=== PATIENT | male | born 1955 | race Asian ===

== ENCOUNTER 2016-10-28 08:47 | Day surgery (SDC) | payer OTHER ==
[~2016-10-28] VITALS: Ht 168.9 cm; Wt 66.7 kg
[2016-10-28] MEDS ORDERED: FER325 PO (10:02)
[2016-10-28] MEDS ORDERED: FOLI-49 PO (10:02)
[2016-10-28] MEDS ORDERED: DOCU-159 PO (10:02)
[2016-10-28] MEDS ORDERED: METO50TA16 PO (10:06)
[2016-10-28] MEDS ORDERED: METH-493 PO (10:06)
[2016-10-28] MEDS ORDERED: HYDR-906 PO (10:06)
[2016-10-28] MEDS ORDERED: PANT40TA3 PO (10:07)
[2016-10-28] MEDS ORDERED: TAMS0.4C2 PO (10:07)
[2016-10-28] MEDS ORDERED: ATOR20TA38 PO (10:08)
[2016-10-28] MEDS ORDERED: CHOL400T10 PO (10:08)
[2016-10-28 10:11] VITALS: Ht 168.9 cm; Wt 66.7 kg
[2016-10-28 10:15] VITALS: BP 139/63; PULSE 101; RESP 16
[2016-10-28] MEDS ORDERED: HEPARIN 1000 UNITS/ML 10 ML INJ ONE (13:35)
[2016-10-28] MEDS ORDERED: HEPARIN 1000 UNITS/NS (A-LINE) 1,000 ML ONE (13:36)
[2016-10-28] MEDS ORDERED: LIDOCAINE 1% (MDV) 20 ML INJ ONE (13:36)
[2016-10-28] MEDS ORDERED: FENTAnyl 50 MCG/ML VIAL ONE (13:37)
[2016-10-28] MEDS ORDERED: MIDAZOLAM 1 MG/ML 2 ML INJ ONE (13:38)
[2016-10-28] MEDS ORDERED: IODIXANOL LOCM 50 ML BTL ONE (14:14)
--- NOTE | 2016-10-28 14:15 | SIPON ---
Date/Time of Note Date/Time of Note DATE: 10/28/16 TIME: 14:14 Operative Report Preoperative Diagnosis L arm AVF malfunction Postoperative Diagnosis same Operation/Procedure Performed L arm AVF gram, PTV basilic vein stenosis Anesthesia Type: other Estimated Blood Loss: minimal Transfusion Required: no Specimen: none Grafts/Implants: none Complications: no NERIS DURAN MD Oct 28, 2016 14:15
[2016-10-28 14:35] VITALS: BP 161/73; PULSE 81; RESP 16
--- NOTE | 2016-10-28 20:37 | OPR ---
DATE OF OPERATION: 10/28/2016 PREOPERATIVE DIAGNOSIS: Left arm arteriovenous fistula malfunction. POSTOPERATIVE DIAGNOSIS: Left arm arteriovenous fistula malfunction. OPERATIVE PROCEDURE: 1. Left arm arteriovenous fistulogram. 2. Percutaneous venoplasty of severe stenosis in the basilic vein. SURGEON: Jacques Morris MD ANESTHESIA: Local. ESTIMATED BLOOD LOSS: Minimal. COMPLICATIONS: There were no intraprocedural complications. INDICATIONS: This is a 60-year-old diabetic, hypertensive gentleman with end-stage renal disease, dialyzing via right IJ PermCath. He has a left upper arm AV fistula to brachiobasilic transposition. It has been accessed for a while but only really with one needle. Whenever they use two needles, he has a lot of pain and having some issues with , so I brought him today for fistulogram. I suspect an infrarenal stenosis. PROCEDURE IN DETAIL: Patient was brought to the coreroom foundry laborer, placed on the table in the supine position. Left arm was prepped and draped in usual sterile fashion. We began by infiltrating over the fistula in the upper arm with 10 cc of 1% Xylocaine. I then punctured the fistula with a micropuncture needle pointing towards the elbow in the upper arm. Placed an 0.018 wire through the needle and into the fistula. The micropuncture sheath was advanced with a wire into the fistula. I then did an AV fistulogram with appropriate compression used so I could see the arterial anastomosis. The AV fistulogram shows arterial anastomosis is widely patent. There is a severe stenosis in the basilic vein about 5 cm above the arterial anastomosis, a few centimeters above the elbow. The rest of the vein is wide open and good caliber. The central veins were all widely patent. To treat the stenosis I advanced an 0.035 J wire into the fistula. I exchanged the micropuncture sheath for a 5-Ukrainian sheath over the wire. I then advanced an 0.035 Glidewire down through the arterial anastomosis and into the brachial artery, then treated the severe stenosis in the basilic vein using a 6 mm x 4 cm balloon. We inflated it to about 14 atmospheres until the waist was no longer visualized. We removed the balloon and completion AV fistulogram showed the area of stenosis was now widely patent with no residual stenosis. There was now a real strong thrill in the fistula. I was happy with the result. We removed the catheter, sheaths and wires, then held pressure on the puncture site until there was good hemostasis. He tolerated the procedure well without any complication. He is okay to use the fistula again tomorrow. Dictated By: Jacques Morris MD /[email or web address] /Document#: [id number] CC: Kee Bucio MD
== END 2016-10-28 15:00 | disposition home or self-care (01) ==
LOC: SDS 08:47
PROVIDERS: ATTEND Surgery Vascular Surgery
DX: T82.898A Other specified complication of vascular prosthetic devices, implants and grafts, initial encounter (principal); Y84.1 Kidney dialysis as the cause of abnormal reaction of the patient, or of later complication, without mention of misadventure at the time of the procedure; Y92.89 Other specified places as the place of occurrence of the external cause; I12.0 Hypertensive chronic kidney disease with stage 5 chronic kidney disease or end stage renal disease; N18.6 End stage renal disease; E11.9 Type 2 diabetes mellitus without complications
CPT/HCPCS: 36901; 82962; 84132; C1725; C1894; J1644; J2250; J3010; Q9967; Z7610

== ENCOUNTER 2017-01-24 06:49 | Day surgery (SDC) | payer OTHER ==
[~2017-01-24] VITALS: Ht 170.2 cm; Wt 66.7 kg
[~2017-01-24 06:49] MED LIST: ATOR20TA38 PO; CHOL400T10 PO; DOCU-159 PO; FER325 PO; FOLI-49 PO; HYDR-906 PO; METH-493 PO; METO-319 PO; PANT40TA3 PO; TAMS0.4C2 PO
[2017-01-24 08:12] VITALS: Ht 170.2 cm; Wt 66.7 kg
[2017-01-24] MEDS ORDERED: LIDOCAINE 1% (MDV) 20 ML INJ ONE (08:14)
[2017-01-24] MEDS ORDERED: IODIXANOL LOCM 100 ML BTL ONE (08:14)
[2017-01-24 08:15] VITALS: BP 161/66; PULSE 74; RESP 16
[2017-01-24] MEDS ORDERED: FENTAnyl 50 MCG/ML VIAL ONE (08:22)
[2017-01-24] MEDS ORDERED: MIDAZOLAM 1 MG/ML 2 ML INJ ONE (08:22)
--- NOTE | 2017-01-24 08:57 | SIPON ---
Date/Time of Note Date/Time of Note DATE: 01/24/17 TIME: 08:55 Operative Report Preoperative Diagnosis L arm AVF malfunction Postoperative Diagnosis same Operation/Procedure Performed L arm AVF gram, PTV mid upper arm basilic vein (95% stenosis, 0 % post PTV 6 x 80 to 20 misti) Surgeon see signature line [facility] assisted living none Anesthesia: other Estimated blood loss: none Transfusion Required none Specimen none Grafts/Implants none Complications none NERIS DURAN MD Jan 24, 2017 08:57
[2017-01-24 09:20] VITALS: BP 148/63; PULSE 60; RESP 18
[2017-01-24] MEDS ORDERED: ACETAMINOPHEN 325 MG TAB PO SCH (09:30)
--- NOTE | 2017-01-24 16:23 | OPR ---
DATE OF OPERATION: 01/24/2017 PREOPERATIVE DIAGNOSIS: Left arm AV fistula malfunction. POSTOPERATIVE DIAGNOSIS: Left arm arteriovenous fistula malfunction. PROCEDURE PERFORMED: Left arm arteriovenous fistulogram with venoplasty of the basilic veins severe stenosis. SURGEON: Neris Morris MD ANESTHESIA: Local anesthesia. ESTIMATED BLOOD LOSS: Minimal. COMPLICATIONS: No intraprocedural complications. INDICATIONS: A 61-year-old diabetic hypertensive gentleman who is on hemodialysis. He has a left a rm brachiobasilic AV fistula had been functioning and he had a large extravasation episode. It is s till patent and there is a good thrill, but there is clearly a narrowing in the mid upper arm basili c vein and it has not been successfully accessed this extravasation and he still has a Perm-A-Cath i n place. We did a venous duplex of carotid duplex of the fistula shows severe stenosis in the mid ar m basilic vein. So I brought him in today for angioplasty of that lesion. DESCRIPTION OF PROCEDURE: The patient was brought to the laborer prestressed concrete and placed on the table in supine position. Left arm was prepped and draped in the usual sterile fashion. I used ultrasound to inte rrogate the fistula from the elbow all the way to the upper arm. I could see right in the mid porti on of the upper arm, there was a severe stenosis and narrowing of the fistula and the fistula was go od caliber just above the arterial anastomosis and good caliber above that. I injected 5 mL of 1% X ylocaine over the basilic vein just above the elbow and then entered the vein using ultrasound lalita nce pointing towards the shoulder. I then advanced an 0.018 wire through the needle into the vein a nd then a micropuncture sheath was advanced over the wire into the vein. I then did an AV fistulogr am that showed the arterial anastomosis is patent. There are some collaterals coming off of the vei n lower down just just above the elbow. Then in the mid upper arm. The basilic vein had an area of about 4 or 5 cm segment where it is narrowed. Right in the middle of that was a 95% narrowing. Above the level the basilic vein was widely patent all the way up the central veins were widely patent and no other obstruction proximally and the art erial anastomosis was widely patent. I advanced the Glidewire through the micropuncture sheath and into the central vein. I exchanged the micropuncture sheath for a 5-English sheath over the wire. I used a 6 x 8 cm balloon angioplastied that area of stenosis in the mid upper arm basilic vein to 20 atmospheres for 2 minute inflation and there was a little tight waist. I dilated this up to about 14 atmospheres when I to get all the way up to 20 just to fully dilated. Left for 2 minutes and a c ompletion fistulogram showed no residual stenosis. There was a good thrill in the fistula that was widely patent. We removed the catheter sheaths and wires and held pressure on the puncture site unt il there was good hemostasis and was transferred to recovery room in stable condition. He tolerated the procedure well without any complications. Dictated By: NERIS CALERO/ESCOBAR Conf#: [id number] DID#: [id number] CC: Kaleb Tobias MD;*End*
== END 2017-01-24 10:58 | disposition home or self-care (01) ==
LOC: SDS 06:49
PROVIDERS: ATTEND Surgery Vascular Surgery
DX: T82.898A Other specified complication of vascular prosthetic devices, implants and grafts, initial encounter (principal); Y84.1 Kidney dialysis as the cause of abnormal reaction of the patient, or of later complication, without mention of misadventure at the time of the procedure; I12.0 Hypertensive chronic kidney disease with stage 5 chronic kidney disease or end stage renal disease; N18.6 End stage renal disease; E11.9 Type 2 diabetes mellitus without complications
CPT/HCPCS: 36902; 75820; 82962; C1725; C1769; C1894; J1644; J2250; J3010; Q9967; Z7610; 37248

== ENCOUNTER 2017-05-05 09:21 | Day surgery (SDC) | END 2017-05-05 13:50 | disposition home or self-care (01) ==

== ENCOUNTER 2017-11-03 06:01 | Day surgery (SDC) | END 2017-11-03 09:03 | disposition home or self-care (01) ==

== ENCOUNTER 2018-05-03 09:38 | Day surgery (SDC) | payer OTHER ==
[2018-05-02 11:17] VITALS: Ht 167.6 cm; Wt 63.0 kg
[~2018-05-03] VITALS: Ht 167.6 cm; Wt 63.0 kg
[~2018-05-03 09:38] MED LIST changes: +ACET-141 PO; +AMIN30LI PO; +ASPI-903 PO; +CALC0.5C10 PO; +CLOP75TA27 PO; -FER325 PO; +HYDR-4011 PO; -HYDR-906 PO; +LEVO50TA71 PO; -METH-493 PO; +MIDO5TAB PO; +MULTI PO; -PANT40TA3 PO; +PANT40TA4 PO
[2018-05-03] MEDS ORDERED: ALPR0.5T PO (10:06)
[2018-05-03 10:39] VITALS: BP 82/52; PULSE 73; RESP 16
[2018-05-03] MEDS ORDERED: HEPARIN 1000 UNITS/NS (A-LINE) 1,000 ML ONE (12:41)
[2018-05-03] MEDS ORDERED: IODIXANOL LOCM 50 ML BTL ONE (12:41)
[2018-05-03] MEDS ORDERED: LIDOCAINE 1% (MDV) 20 ML INJ ONE (12:41)
[2018-05-03] MEDS ORDERED: SOD CHLORIDE 0.9% 500 ML ONE (12:41)
[2018-05-03] MEDS ORDERED: MIDAZOLAM 1 MG/ML 2 ML INJ ONE (12:43)
[2018-05-03] MEDS ORDERED: FENTAnyl 50 MCG/ML VIAL ONE (12:43)
[2018-05-03 14:07] VITALS: BP 144/60; PULSE 77; RESP 18
[2018-05-03] MEDS ORDERED: ACETAMINOPHEN 325 MG TAB PO ONE (15:00)
--- NOTE | 2018-05-03 17:21 | OPR ---
DATE OF OPERATION: 05/03/2018 PREOPERATIVE DIAGNOSIS: Nonfunctional left arm arteriovenous fistula. POSTOPERATIVE DIAGNOSIS: Nonfunctional left arm arteriovenous fistula. PROCEDURE PERFORMED: Left arm AV fistulogram with percutaneous venoplasty and stent placement. SURGEON: Neris Morris MD ANESTHESIA: Local with sedation. ESTIMATED BLOOD LOSS: Minimal. COMPLICATIONS: No intraprocedural complications. 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 He has had a nephrectomy. He is in really end-stage situation. He has bee n getting chemo but there are no further surgical options for the brain mets. He is on dialysis and was to continue for the time being. He has a left arm brachiobasilic AV fistula. It had issues with flow recently and a lot of trouble accessing it. On exam, there is a thrill but it is a very soft t hrill and it is almost occluded, so I brought him in today for fistulogram and possible intervention. DESCRIPTION OF PROCEDURE: The patient was brought to the starch factory laborer, placed on the table in the supine position. Left arm was prepped and draped in the usual sterile fashion. I used ultrasound to inter rogate the fistula. It is patent in the upper arm and good caliber, so I infiltrated over the vein i n the upper arm just almost to the axilla with about 5 mL of 1% Xylocaine. I punctured the vein unde r ultrasound guidance pointing towards the elbow with micropuncture needle. An 0.018 wire was insert ed through the needle into the vein and a micropuncture sheath was advanced over the wire into the ve in. I then did a fistulogram which identified the fistula was patent. There is a stent in the mid p ortion that has got diffuse in-stent stenosis almost 90% and then proximal to that another area of 75 % to 80% stenosis. There is very little inflow. The fistula from the mid upper arm up was patent. Central veins are patent. There is some mild narrowing by the axillary-basilic junction, but not sev ere, so I then advanced the Glidewire through the micropuncture sheath and into the brachial artery, exchanged the micropuncture sheath for a 6-Icelandic sheath over the wire, then used a 7 x 100 balloon t o angioplasty the entire stenotic segment of the basilic vein basically from the arterial anastomosis to the upper portion of the upper arm. After the venoplasty, it was all widely patent except for an area down about 2 cm above the elbow where the vein just basically disrupted. There was some extrav asation and the vein clearly had a severe sort of stenosis there from the disruption, so I placed a 7 x 40 mm self-expanding stent over the wire and then deployed it over this area of disruption then po stdilated with a 7 mm balloon to 4 atmospheres. There was no residual stenosis. The fistula was now widely patent and has a good thrill. I was happy with the result. I removed all the catheter sheat hs and wires. I used 4-0 Monocryl pursestring suture to close the puncture site. There was good hemo stasis. A sterile dressing was applied. The patient was transferred back to same day in stable cond ition. He tolerated the procedure well without any complications. Dictated By: NERIS CALERO/ESCOBAR Conf#: [id number] DID#: [id number]
== END 2018-05-03 14:54 | disposition home or self-care (01) ==
LOC: SDS 09:38
PROVIDERS: ATTEND Surgery Vascular Surgery
DX: T82.898D Other specified complication of vascular prosthetic devices, implants and grafts, subsequent encounter (principal); Y84.8 Other medical procedures as the cause of abnormal reaction of the patient, or of later complication, without mention of misadventure at the time of the procedure; I12.0 Hypertensive chronic kidney disease with stage 5 chronic kidney disease or end stage renal disease; N18.6 End stage renal disease; E11.9 Type 2 diabetes mellitus without complications
CPT/HCPCS: 36903; 82962; 84132; C1725; C1875; C1894; J1644; J2250; J3010; J7040; Q9967; Z7610